=== PATIENT | male | born 1955 | race Caucasian/White ===

== ENCOUNTER 2020-08-02 05:59 | Day surgery (SDC) | payer BC, OTHER ==
[2020-07-29 11:37] VITALS: BMI 29.9
[2020-08-02] MEDS ORDERED: ROPIVACAINE HCL 0.5% 30ML VIAL ONE (06:58)
[2020-08-02] MEDS ORDERED: MIDAZOLAM HCL 2 MG/2 ML SINGLE DOSE VIAL ONE (06:58)
[2020-08-02] MEDS ORDERED: EPINEPHrine 1:1,000 1 MG/1 ML - 30ML VIAL (INJECTION) ONE (07:22)
[2020-08-02] MEDS ORDERED: DEXAMETHASONE SOD PHOSPHATE 10 MG/1 ML VIAL ONE (07:34)
[2020-08-02] MEDS ORDERED: SUCCINYLCHOLINE CHLORIDE 200 MG/10 ML SYRINGE ONE (07:34)
[2020-08-02] MEDS ORDERED: PROPOFOL 20 ML ONE ×2 (07:34)
[2020-08-02] MEDS ORDERED: ceFAZolin SODIUM 1 GM VIAL ONE (08:08)
[2020-08-02] MEDS ORDERED: ONDANSETRON 4 MG/2 ML VIAL ONE (08:23)
[2020-08-02] MEDS ORDERED: DEXAMETHASONE SOD PHOSPHATE 4 MG/1 ML VIAL ONE (08:23)
[2020-08-02] MEDS ORDERED: methylPREDNISolone ACET (DEPO) 40 MG/1 ML VIAL ONE (08:32)
[2020-08-02] MEDS ORDERED: LIDOCAINE HCL 1%, 10 MG/ML (20ML VIAL) ONE (08:32)
[2020-08-02] MEDS ORDERED: oxyCODONE HCL 5 MG TABLET ONE ×2 (09:03)
[2020-08-02] MEDS ORDERED: oxyCODONE HCL 5 MG TABLET PO ONE (09:10)
[2020-08-02] MEDS ORDERED: ACETAMINOPHEN 500 MG TABLET (FP) PO ONE (09:11)
[2020-08-02] MEDS ORDERED: ACETAMINOPHEN INJECTION 100 ML IVPB ONE (09:14)
[2020-08-02] MEDS ORDERED: ACETAMINOPHEN 1000 MG/100 ML VIAL (NON FORMULARY) IVPB ONE (09:24)
[2020-08-02 11:26] VITALS: BP 110/68; PULSE 61; TEMP 97.7
== END 2020-08-02 11:26 | disposition home or self-care (01) ==
LOC: FASU 05:59
PROVIDERS: ATTEND Orthopaedic Surgery
PROC: 0RNK4ZZ Release Left Shoulder Joint, Percutaneous Endoscopic Approach (ICD-10-PCS; 2020-08-02)
PROC: 0PBB4ZZ Excision of Left Clavicle, Percutaneous Endoscopic Approach (ICD-10-PCS; 2020-08-02)
PROC: 0RNK4ZZ Release Left Shoulder Joint, Percutaneous Endoscopic Approach (ICD-10-PCS; principal; 2020-08-02 08:29)
DX: M75.02 Adhesive capsulitis of left shoulder (principal); M75.42 Impingement syndrome of left shoulder; M19.012 Primary osteoarthritis, left shoulder; M65.812 Other synovitis and tenosynovitis, left shoulder; S43.432A Superior glenoid labrum lesion of left shoulder, initial encounter; X58.XXXA Exposure to other specified factors, initial encounter; Y92.9 Unspecified place or not applicable; Y93.9 Activity, unspecified
CPT/HCPCS: J0131; J1100